=== PATIENT | female | born 1985 | race Caucasian/White ===

== ENCOUNTER → 2019-02-23 09:31 | Outpatient (CLI) | payer OTHER, SELFPAY ==
--- NOTE | 2019-02-23 09:33 | DI.US.S_ITS ---
PROCEDURE: US OB <= 14 WEEKS FETUS INDICATIONS: DATES OUTSIDE/PRIOR DATING DATA: Last menstrual period (LMP): 01/06/19. LMP-based estimated date of delivery (JEANMARIE): 10/13/19. First dating scan (date and location): 02/24/20. Estimated date of delivery (JEANMARIE) from first dating scan: 10/18/19. TECHNIQUE: Real-time scanning was performed of the fetus and maternal pelvic organs, with image documentation. Endovaginal scanning was also performed to better visualize the fetus and maternal ovaries. COMPARISON: None. FINDINGS: Embryo: Bicornuate uterus redemonstrated with the position within the right uterine horn. [place]-rump length measures 4 mm corresponding to 6 weeks 1 day. Heart rate measures 72 beats per minute. Measurement variability in dating: +/- 4 weeks by LMP, +/- 7 days by mean sac diameter (use before 6 weeks gestation if crown-rump length not able to be measured), +/- 5 days by crown-rump length (up to 8 weeks 6 days gestation), +/- 7 days by crown-rump length (up to 13 weeks 6 days gestation). Maternal organs: The right ovary is within normal limits. Left ovary is not visualized. Limited images through the kidneys demonstrate no hydronephrosis. IMPRESSION: 1. Bicornuate uterus redemonstrated with the and the right uterine horn with age estimated at 6 weeks 1 day. Bradycardia is noted with heart rate of 72 beats per minute. Followup ultrasound in one week is recommended to assess embryonic viability. Dictated by: Houston RODRIGUEZ Interpreted: Calvin Joyner MD on 02/23/2019 at 13:34 Approved by: Calvin Joyner M.D. on 02/23/2019 at 17:09
== END ==
PROVIDERS: PCP Family Medicine; Visit Provider Family Medicine
DX: O34.01 Maternal care for unspecified congenital malformation of uterus, first trimester (principal); O36.8310 Maternal care for abnormalities of the fetal heart rate or rhythm, first trimester, not applicable or unspecified; Q51.3 Bicornate uterus; Z3A.01 Less than 8 weeks gestation of pregnancy
CPT/HCPCS: 76801; 76817

== ENCOUNTER → 2019-03-02 07:36 | Outpatient (CLI) | payer OTHER, SELFPAY ==
--- NOTE | 2019-03-02 07:36 | DI.US.S_ITS ---
PROCEDURE: US OB <= 14 WEEKS FETUS INDICATIONS: FOLLOW-UP BRACYCARDIA OUTSIDE/PRIOR DATING DATA: Last menstrual period (LMP): 01/06/19. LMP-based estimated date of delivery (JEANMARIE): 10/13/19. First dating scan (date and location): 02/24/20. Estimated date of delivery (JEANMARIE) from first dating scan: 10/18/19. TECHNIQUE: Real-time scanning was performed of the fetus and maternal pelvic organs, with image documentation. Endovaginal scanning was also performed to better visualize the fetus and maternal ovaries. COMPARISON: [facility], , OB <= 14 WEEKS FETUS, 02/23/2019, 9:48. FINDINGS: Embryo: [place]-rump length 5 mm correlates with a gestational age of 6 weeks 2 days, but expected gestational age from initial ultrasound is 7 weeks 1 day and no cardiac activity was observed. Measurement variability in dating: +/- 4 weeks by LMP, +/- 7 days by mean sac diameter (use before 6 weeks gestation if crown-rump length not able to be measured), +/- 5 days by crown-rump length (up to 8 weeks 6 days gestation), +/- 7 days by crown-rump length (up to 13 weeks 6 days gestation). Maternal organs: Ovaries are normal considering gestational status. Limited images through the kidneys demonstrate no hydronephrosis. IMPRESSION: demise. Current estimated gestational age of the pole is 6 weeks 2 days, with no cardiac activity observed. Dictated by: Ned Altman M.D. on 03/02/2019 at 12:27 Approved by: Ned Altman M.D. on 03/02/2019 at 12:29
== END ==
PROVIDERS: PCP Family Medicine; Visit Provider Family Medicine
DX: O02.1 Missed abortion (principal)
CPT/HCPCS: 76801; 76817

== ENCOUNTER → 2019-03-08 16:34 | Outpatient (CLI) | payer OTHER, SELFPAY ==
[2019-03-08 19:02] LABS: HCG Quantitative /Beta subunit 27147 mIU/mL
== END ==
PROVIDERS: PCP Family Medicine; Visit Provider Family Medicine
DX: O02.1 Missed abortion (principal)
CPT/HCPCS: 36415; 84702

== ENCOUNTER → 2019-03-16 16:35 | Outpatient (CLI) | payer OTHER, SELFPAY ==
[2019-03-16 18:05] LABS: HCG Quantitative /Beta subunit 767.49 mIU/mL
== END ==
PROVIDERS: PCP Family Medicine; Visit Provider Family Medicine
DX: O03.9 Complete or unspecified spontaneous abortion without complication (principal)
CPT/HCPCS: 36415; 84702

== ENCOUNTER → 2019-03-21 14:26 | Outpatient (CLI) | payer OTHER, SELFPAY ==
[2019-03-21 16:40] LABS: HCG Quantitative /Beta subunit 209.13 mIU/mL
== END ==
PROVIDERS: PCP Family Medicine; Visit Provider Family Medicine
DX: O03.9 Complete or unspecified spontaneous abortion without complication (principal)
CPT/HCPCS: 36415; 84702

== ENCOUNTER → 2019-04-04 12:39 | Outpatient (CLI) | payer OTHER, SELFPAY ==
[2019-04-04 14:24] LABS: HCG Quantitative /Beta subunit 21.16 mIU/mL
== END ==
PROVIDERS: PCP Family Medicine; Visit Provider Family Medicine
DX: O03.9 Complete or unspecified spontaneous abortion without complication (principal)
CPT/HCPCS: 36415; 84702

== ENCOUNTER → 2019-04-18 10:39 | Outpatient (CLI) | payer OTHER, SELFPAY ==
[2019-04-18 12:11] LABS: HCG Quantitative /Beta subunit 5.68 mIU/mL
== END ==
PROVIDERS: PCP Family Medicine; Visit Provider Family Medicine
DX: O03.9 Complete or unspecified spontaneous abortion without complication (principal)
CPT/HCPCS: 36415; 84702

== ENCOUNTER → 2019-07-11 11:02 | Outpatient (CLI) | payer OTHER, SELFPAY | PROVIDERS: PCP Family Medicine; Visit Provider Registered Nurse | DX: R07.0 Pain in throat (principal) | CPT/HCPCS: 87070 ==

== ENCOUNTER → 2019-07-13 09:37 | Outpatient (CLI) | payer OTHER, SELFPAY ==
--- NOTE | 2019-07-13 09:38 | DI.US.S_ITS ---
PROCEDURE: US PELVIC COMPLETE INDICATIONS: DYSMENORRHEA TECHNIQUE: Real-time scanning was performed of the pelvic organs, with image documentation. Additional endovaginal scanning was necessary due to incomplete visualization of the adnexal and endometrial structures by transabdominal scanning. COMPARISON: None. FINDINGS: Transabdominal scanning: A mild amount of free pelvic fluid is seen, which is considered to be within physiologic limits. Limited scanning through the kidneys shows no hydronephrosis. Endovaginal scanning: Uterus: Uterus is normal in size at 5.9 x 4.2 x 7.7 cm. A history of a bicornuate uterus is given and the uterus again demonstrates a bicornuate appearance. The endometrial stripe on the right measures 6 mm and the endometrial stripe the left measures 10 mm. Ovaries: The right ovary measures 3.7 x 2 x 2.7 cm, and demonstrates a likely hemorrhagic cyst measuring 1.8 cm. The left ovary measures 3.2 x 1.2 x 2.8 cm. The ovaries otherwise have a normal sonographic appearance. No adnexal masses are seen. IMPRESSION: Likely 1.8 cm right ovarian hemorrhagic cyst. At clinical discretion, a followup pelvic ultrasound is suggested in 6 weeks to assure resolution/ improvement. Bicornuate uterus. Dictated by: Emmanuel Guy M.D. on 07/13/2019 at 10:07 Approved by: Emmanuel Guy M.D. on 07/13/2019 at 10:10
== END ==
PROVIDERS: PCP Family Medicine; Referring Provider Family Medicine; Visit Provider Family Medicine
DX: N94.6 Dysmenorrhea, unspecified (principal); Q51.3 Bicornate uterus; N83.201 Unspecified ovarian cyst, right side
CPT/HCPCS: 76830; 76856

== ENCOUNTER → 2019-11-21 15:01 | Outpatient (CLI) | payer OTHER, SELFPAY ==
[2019-11-21 16:11] LABS: Add Manual Diff / Slide Review NO; Basophils Absolute Auto 0 /uL (0-100); Basophils Percent Auto 0.3 % (0-2); Eosinophils Absolute Auto 100 /uL (0-450); Eosinophils Percent Auto 1.1 % (2-4); Hematocrit 32.4 % (36-46); Hemoglobin 11.5 g/dL (12.0-16.0); Lymphocytes Absolute Auto 2400 /uL (1100-4500); Lymphocytes Percent Auto 24.7 % (25-40); Mean Corpuscular HGB Conc 35.6 % (30-36); Mean Corpuscular Hemoglobin 30.5 PG (26-34); Mean Corpuscular Volume 85.7 fL (80-100); Monocytes Absolute Auto 500 /uL (0-900); Monocytes Percent Auto 4.9 % (3-14); Neutrophils Absolute Auto 6700 /uL (1500-7000); Platelet Count 173 X10^3/uL (150-400); Red Blood Cell Count 3.78 X10^6/uL (4.0-5.2); Red Cell Distribution Width 12.3 % (11.6-14.8); White Blood Cell Count 9.7 X10^3/uL (4.5-11.0)
[2019-11-21 17:23] LABS: Hepatitis B Surface Antigen NEGATIVE s/c (NEGATIVE)
[2019-11-21 17:39] LABS: HIV 1 & 2 Ab/Ag 4th Gen Combo NEGATIVE (NEGATIVE); Hep C Virus Ab w/Reflex Quant NEGATIVE s/c (NEGATIVE)
[2019-11-21 18:36] LABS: Appearance Urine UA CLEAR; Bilirubin Urine UA NEGATIVE (NEGATIVE); Color Urine UA YELLOW; Glucose Urine UA NEGATIVE (Negative); Ketones Urine UA NEGATIVE (NEGATIVE); Leukocyte Esterase Urine UA NEGATIVE (NEGATIVE); Nitrite Urine UA NEGATIVE (Negative); Occult Blood Urine UA NEGATIVE (Negative); Protein Urine UA NEGATIVE (Negative); Specific Gravity Urine UA 1.015 (1.000-1.035); Urobilinogen Urine UA 0.2 E.U./dL (0.2)
[2019-11-21 18:40] LABS: pH Urine UA 5.5 (4.5-8.0)
[2019-11-22 04:36] LABS: RPR Screen Non Reactive (Non Reactive)
[2019-11-22 08:41] LABS: Varicella IgG Antibody >4000 index (Immune >165)
== END ==
PROVIDERS: PCP Family Medicine; Referring Provider Obstetrics & Gynecology; Visit Provider Obstetrics & Gynecology
DX: Z34.90 Encounter for supervision of normal pregnancy, unspecified, unspecified trimester (principal)
CPT/HCPCS: 36415; 80055; 81003; 86787; 86803; 86850; 86900; 86901; 87086; 87389

== ENCOUNTER → 2020-01-09 16:26 | Outpatient (CLI) | payer OTHER, SELFPAY ==
[2020-01-18 16:12] LABS: AFP Value 163.7 ng/mL (.); Gest Age on Col Date 17.1 weeks (.); Gestational Age As provided (.); Insulin Dep Diabetes No (.); OSBR Risk 1IN 41 (.); Test Results *Screen Positive* (.)
[2020-01-27 10:17] LABS: Results Report (.)
== END ==
PROVIDERS: PCP Family Medicine; Referring Provider Obstetrics & Gynecology; Visit Provider Obstetrics & Gynecology
DX: Z34.92 Encounter for supervision of normal pregnancy, unspecified, second trimester (principal)
CPT/HCPCS: 36415; 82105

== ENCOUNTER 2020-02-23 09:09 | Observation (INO) | payer OTHER, SELFPAY ==
[2020-02-23 10:48] LABS: Appearance Urine UA CLEAR; Bilirubin Urine UA NEGATIVE (NEGATIVE); Color Urine UA YELLOW; Glucose Urine UA NEGATIVE (Negative); Ketones Urine UA NEGATIVE (NEGATIVE); Leukocyte Esterase Urine UA TRACE (NEGATIVE); Nitrite Urine UA NEGATIVE (Negative); Occult Blood Urine UA NEGATIVE (Negative); Protein Urine UA NEGATIVE (Negative); Urobilinogen Urine UA 0.2 E.U./dL (0.2)
[2020-02-23] MEDS: NIFEdipine 10 MG CAPSULE PO ×4 (10:49→11:58)
[2020-02-23 11:17] LABS: Bacteria Urine Few (2-10); Culture Indicated Urine Specimen Cultured; RBC Urine 0-1/HPF (0-5/HPF); Squamous Epithelial Cell Urine 1-5 /HPF (0-5/HPF); WBC Urine 0-1/HPF (0-5/HPF)
[2020-02-23 12:09] LABS: Fetal Fibronectin Negative
== END 2020-02-23 12:35 | disposition home or self-care (01) ==
PROVIDERS: Admitting Provider Obstetrics & Gynecology; PCP Family Medicine; Referring Provider Obstetrics & Gynecology; Visit Provider Obstetrics & Gynecology
DX: O47.02 False labor before 37 completed weeks of gestation, second trimester (principal); R10.2 Pelvic and perineal pain; Z3A.23 23 weeks gestation of pregnancy
CPT/HCPCS: 59025; 59050; 81001; 82731; 84112; 87086; G0378; G0379

== ENCOUNTER 2020-02-29 23:36 | Emergency (ER) | payer OTHER, SELFPAY ==
[2020-02-29 23:42] VITALS: BP 114/60; PULSE 92; RESP 22; TEMP 36.7; O2SAT 99
--- NOTE | 2020-02-29 23:51 | ED.ABDPAIN ---
HPI - Abdominal Pain General Chief Complaint: Abdominal Pain Stated Complaint: 24w preg with severe belly pain x12 hours Time Seen by Provider: 02/29/20 23:42 Source: patient Mode of arrival: Ambulatory History of Present Illness HPI narrative: 34-year-old presents at 24 weeks gestational age complaining of significant hemorrhoidal/perirectal pain. She was seen last week and started on nitrofurantoin for a urinary tract infection. Urine culture from February 22 shows mixed charlee. She had recurrent symptoms of urgency and frequency and was seen in clinic today and switched to Keflex. She notes moderate constipation that seems to be better controlled with Colace b.i.d. she does note some mild perianal seat being secondary to presumed internal hemorrhoids. She has been using [id number] preparation H but does not feel that this is influencing her internal hemorrhoids. This evening the hemorrhoidal pain was significant enough that she was unable to sleep and she presents for further evaluation Baby is moving and active. She describes no fevers, no cough, no shortness of breath no palpitations Related Data Home Medications Medication Instructions Recorded Confirmed cholecalciferol (vitamin D3) 25 1,000 unit PO DAILY 04/01/18 02/06/20 mcg (1,000 unit) capsule omega-3 fatty acids 1,000 mg 1,000 mg PO DAILY 04/01/18 02/06/20 capsule prenat.vits,valeria,gvf-umao-ppbhg 1 tab PO DAILY 10/25/19 02/06/20 ferrous sulfate 325 mg (65 mg 325 mg PO DAILY 11/22/19 02/06/20 iron) tablet Previous Rx's Medication Instructions Recorded Message THerapy #1 ea 03/01/19 hydroxyprogest(PF)(preg presv) 275 275 mg SUBCUT QWEEK #4.4 ml MDD 10/25/19 mg/1.1 mL subcut auto-inject JEANMARIE 06/17/20 nifedipine 30 mg tablet,extended 30 mg PO BID #60 tab 02/23/20 release cephalexin 250 mg capsule 250 mg PO QID #20 cap 02/29/20 hydrocortisone acetate [Anusol-HC] 25 mg [place] BID #24 ea 03/01/20 Allergies Allergy/AdvReac Type Severity Reaction Status Date / Time erythromycin base Allergy Intermediate Rash Verified 02/06/20 13:47 [ERYTHROMYCIN BASE] Sulfa (Sulfonamide Allergy Intermediate Rash Verified 02/06/20 13:47 Antibiotics) [SULFA (SULFONAMIDE ANTIBIOTICS)] Review of Systems Review of Systems Narrative: Remainder of review of systems including constitutional, ENT, cardiovascular, respiratory, GI, , musculoskeletal, skin, neurologic and psychiatric systems reviewed and are unremarkable except as noted in HPI. Patient History Medical History (Updated 03/01/20 @ 01:11 by Jada Augustin MD) Anemia Anxiety Bicornuate uterus delivery delivered Chronic UTI Headache Hemorrhoids Hypoglycemia Lump or mass in breast Migraines Ruptured cyst of left ovary (~2019) Syncope Varicose veins of both legs with edema Yeast infection Surgical History Anesthesia H/O emergency section (~03/12/17) History of surgery (~05/2012) History of surgery (~05/2013) History of third molar tooth extraction History of third molar tooth extraction (~2011) Family History Father Age: 60 Diabetes mellitus Varicose veins of both lower extremities Mother Rheumatoid arthritis Grandfather MVA (motor vehicle accident) Altered cardiac tissue perfusion Abdominal obesity Grandmother Osteoarthritis (arthritis due to wear and tear of joints) Grandfather Diabetes mellitus Abdominal obesity Grandmother Irregular heart rate Family/Other Alzheimers disease Family/Other Cancer Social History marital status: pets and animals: Yes (X 1 Dog) education level: college (some College) occupational status: unemployed current occupational exposures/hazards: No 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: [employer] special cassandra needs: No Smoking Status: Never smoker second hand exposure: No alcohol intake: former (pre- : social 1-2/week) substance use type: does not use Smoking Status: Never smoker Exam Narrative Exam Narrative: General: Alert appropriate in no acute distress Respiratory: Able to speak in full sentences, no obvious respiratory distress Skin: No obvious rashes, warm and dry Neurologic: Grossly intact no obvious asymmetries or abnormalities Abdomen: Gravid soft, nontender Pelvic: Cervix is long and closed no vaginal discharge Perineum: There is a 1.5 cm thrombosed hemorrhoid at the 6 o'clock position. Full internal hemorrhoids without thrombosis at this time Psych, appropriate insight and affect, cooperative Bedside ultrasound shows active fetus with heart rate at 140 Initial Vital Signs Initial Vital Signs: Vital Signs Temperature 98.1 F 02/29/20 23:42 Pulse Rate 92 H 02/29/20 23:42 Respiratory Rate 22 02/29/20 23:42 Blood Pressure 114/60 02/29/20 23:42 Pulse Oximetry 99 02/29/20 23:42 Procedures [facility] Procedure Name of Procedure: Thrombosed hemorrhoid evacuation Location: 6:00 a.m. site of the anus Technique/Description of procedure performed: 4 cc of of heard 1% lidocaine is injected at the base of the external hemorrhoid. Using a 15 blade scalpel incision was made and blood clot was removed from the center of the hemorrhoid. Patient tolerated the procedure well. Total of 3 cc blood loss Patient tolerated procedure: Well Complications: none Course Orders Ordered: ED Orders 03/01/20 01:00 Urinalysis and Microscopic Stat Lidocaine HCl (Lidocaine Jelly 2% 5 Ml) 1 applic TOP NOW ONE Stop: 03/01/20 01:19 Discontinued Medications Lidocaine HCl (Lidocaine Jelly 2% 5 Ml) 1 applic TOP NOW ONE Stop: 03/01/20 01:10 Last Admin: 03/01/20 01:13 Dose: 1 applic Documented by: Lidocaine/Sodium Bicarbonate (Lido 1%/Sod Bicarb 8.4% (10ml) 10 Ml Syringe) 10 ml INJ NOW ONE Stop: 03/01/20 00:04 Last Admin: 03/01/20 00:25 Dose: 10 ml Documented by: Vital Signs Vital signs: Vital Signs - 8 hr 02/29/20 23:42 Temperature 98.1 F Pulse Rate 92 H Respiratory Rate 22 Blood Pressure 114/60 Pulse Oximetry 99 MDM - Abdominal Pain Lab Data Attestation: I reviewed the patient's lab results. Labs: Lab Results 03/01/20 Range/Units 01:00 Urine Color Yellow Urine Appearance Clear Urine pH 6.0 (4.5-8.0) Ur Specific [place] <=1.005 (1.000-1.035) Urine Protein Negative (Negative) Urine Glucose (UA) Negative (Negative) g/dL Urine Ketones 2+ H (NEGATIVE) Urine Occult Blood Trace-intact (Negative) Urine Nitrate Negative (Negative) Urine Bilirubin Negative (NEGATIVE) Urine Urobilinogen 0.2 (0.2) E.U./dL Ur Leukocyte Esterase Negative (NEGATIVE) Point of care testing: Urine Dip Bedside Urine Glucose Negative Bedside Urine Bilirubin - Negative Bedside Urine Ketone +++ 80 Urine Specific [place] 1.010 Bedside Urine Occult Blood - Negative Bedside Urine pH 6.0 Bedside Urine Protein - Negative Bedside Urine Urobilinogen - Negative Bedside Urine Nitrite - Negative Bedside Urine Leukocytes - Negative Esterase MDM Narrative Medical decision making narrative: 34-year-old woman presents with hemorrhoidal pain and discomfort. She was seen on the with increasing contractions in the setting with 23 week in bicornuate uterus. She was treated for urinary tract infection with 5 days of nitrofurantoin however the culture eventually returned with mixed charlee. She was having recurrent symptoms of frequency yesterday so antibiotics were changed to Keflex. Today urine dip does not suggest infection and I have recommended she stop the Keflex for now. She had a small thrombosed hemorrhoid that was removed without difficulty. She is given a prescription for Anusol HC to help with the internal hemorrhoids and leaking that she is experiencing. Have asked her follow-up with her OBGYN if she has increasing contractions or continued urinary symptoms. Discharge Plan Departure Patient Disposition: Home Clinical Impression: Hemorrhoids Qualifiers: Hemorrhoid type: perianal venous thrombosis Qualified Code(s): K64.5 - Perianal venous thrombosis Qualifiers: Weeks of gestation: 24 weeks Qualified Code(s): Z3A.24 - 24 weeks gestation of Instructions: DI for Hemorrhoids Activity Restrictions/Additional Instructions: Thank you for coming in today Your baby looks like he is doing well and his heartbeat is reassuring tonight You do have both internal and external hemorrhoids. One of the external ones did have a thrombosed clot. I was able to remove a small clot. You also have internal hemorrhoids that are quite full but not thrombosed. That is part of the reason that your having a bit of drainage from your rectum. I have given you a prescription for Anusol HC, steroid suppository to help reduce inflammation. These are inserted into your rectum morning and night for 3 days initially and then as needed to help control pain and swelling. [facility] [place] Continuing to use Sitz baths will be helpful as the area where the hemorrhoid clot was removed will still be tender for a day or two. Do continue to use stool softeners and avoid constipation as much as possible. Your urine culture from February 22 showed mixed charlee and no evidence of a bladder infection. Your urinalysis from today did not show any evidence of a bladder infection and has been sent to the lab. If the 2nd microbiology test shows abnormalities it will be cultured. Please follow-up with Dr. Castillo. At this time I would not recommend that you continue the Keflex I wish you the best Prescriptions: New hydrocortisone acetate [Anusol-HC] 25 mg suppository 25 mg [place] BID Qty: 24 RF: 0 No Action cholecalciferol (vitamin D3) 1,000 unit capsule 1,000 unit PO DAILY RF: 0 omega-3 fatty acids [Fish Oil Concentrate] 1,000 mg capsule 1,000 mg PO DAILY RF: 0 (DME) Message THerapy Qty: 1 RF: 0 ferrous sulfate 325 mg (65 mg iron) tablet 325 mg PO DAILY RF: 0 nifedipine 30 mg tablet extended release 30 mg PO BID Qty: 60 RF: 3 cephalexin [Keflex] 250 mg capsule 250 mg PO QID Qty: 20 RF: 0 prenat.vits,valeria,bpu-dugs-fxiql Tablet 1 tab PO DAILY RF: 0 [place] (PF) 275 mg/1.1 mL auto-injector 275 mg SUBCUT QWEEK MDD JEANMARIE 06/17/20 Qty: 4.4 RF: 4 Referrals: Candace Rodriguez DO [Primary Care Provider] -
[2020-03-01] MEDS: LIDO 1%/SOD BICARB 8.4% (10ML) 10 ML SYRINGE INJ (00:25)
[2020-03-01 01:06] LABS: Appearance Urine UA CLEAR; Bacteria Urine None Seen; Bilirubin Urine UA NEGATIVE (NEGATIVE); Color Urine UA YELLOW; Glucose Urine UA NEGATIVE (Negative); Ketones Urine UA 2+ (NEGATIVE); Leukocyte Esterase Urine UA NEGATIVE (NEGATIVE); Nitrite Urine UA NEGATIVE (Negative); Occult Blood Urine UA TRACE-INTACT (Negative); Protein Urine UA NEGATIVE (Negative); RBC Urine None Seen (0-5/HPF); Specific Gravity Urine UA <=1.005 (1.000-1.035); Urobilinogen Urine UA 0.2 E.U./dL (0.2); WBC Urine None Seen (0-5/HPF)
[2020-03-01] MEDS: LIDOCAINE JELLY 2% 5 ML 1 APPLIC TOP ×2 (01:13→01:23)
[2020-03-01 01:24] VITALS: BP 99/55; PULSE 81; RESP 18; O2SAT 100
[2020-03-01 01:26] LABS: Culture Indicated Urine Cult Not Indicated; Squamous Epithelial Cell Urine 1-5 /HPF (0-5/HPF)
== END 2020-03-01 01:25 | disposition home or self-care (01) ==
PROVIDERS: Emergency Provider Emergency Medicine; PCP Family Medicine
DX: O26.892 Other specified pregnancy related conditions, second trimester (principal); K64.5 Perianal venous thrombosis; Z3A.24 24 weeks gestation of pregnancy
CPT/HCPCS: 46320; 81001; 81003; 99281; 99283

== ENCOUNTER → 2020-03-05 14:27 | Outpatient (CLI) | payer OTHER, SELFPAY ==
[2020-03-05 15:22] LABS: Fetal Fibronectin Negative
== END ==
PROVIDERS: PCP Family Medicine; Visit Provider Obstetrics & Gynecology
DX: Z34.82 Encounter for supervision of other normal pregnancy, second trimester (principal); Z3A.25 25 weeks gestation of pregnancy
CPT/HCPCS: 82731

== ENCOUNTER → 2020-03-06 14:14 | Outpatient (CLI) | payer OTHER, SELFPAY ==
[2020-03-06 16:17] LABS: Hemoglobin 10.8 g/dL (12.0-16.0)
[2020-03-06 17:06] LABS: GTT (PREG) 1 Hour PP 50gm Dose 164 mg/dL (76-139)
== END ==
PROVIDERS: PCP Family Medicine; Referring Provider Obstetrics & Gynecology; Visit Provider Obstetrics & Gynecology
DX: Z34.82 Encounter for supervision of other normal pregnancy, second trimester (principal); Z3A.26 26 weeks gestation of pregnancy
CPT/HCPCS: 36415; 82950; 85014; 85018

== ENCOUNTER → 2020-03-19 07:46 | Outpatient (CLI) | payer OTHER, SELFPAY ==
[2020-03-19 08:55] LABS: Glucose Fasting Gestational 82 mg/dL (76-95)
[2020-03-19 09:55] LABS: Glucose 1 Hour Gest 162 mg/dL (76-180)
[2020-03-19 11:38] LABS: Glucose Tol Interp,Gestational INTERPRETATION
[2020-03-19 12:05] LABS: Glucose 3 Hour Gest 98 mg/dL (76-140)
[2020-03-19 12:19] LABS: Glucose 2 Hour Gest 161 mg/dL (76-155)
[2020-03-19 15:23] LABS: Fetal Fibronectin Negative
== END ==
PROVIDERS: Obstetrics & Gynecology; PCP Family Medicine; Referring Provider Family Medicine; Visit Provider Family Medicine
DX: O99.810 Abnormal glucose complicating pregnancy (principal); O09.899 Supervision of other high risk pregnancies, unspecified trimester; Z3A.27 27 weeks gestation of pregnancy
CPT/HCPCS: 36415; 82731; 82951; 82952

== ENCOUNTER → 2020-04-02 13:24 | Outpatient (CLI) | payer OTHER, SELFPAY ==
[2020-04-02 14:47] LABS: Fetal Fibronectin Negative
== END ==
PROVIDERS: PCP Family Medicine; Visit Provider Obstetrics & Gynecology
DX: Z34.83 Encounter for supervision of other normal pregnancy, third trimester (principal); Z3A.29 29 weeks gestation of pregnancy
CPT/HCPCS: 82731

== ENCOUNTER 2020-04-12 12:51 | Observation (INO) | payer OTHER, SELFPAY ==
[2020-04-12 13:54] LABS: Fetal Fibronectin Negative
[2020-04-12] MEDS: TERBUTALINE 1 MG/ML VIAL 0.25 MG SUBCUT (14:00)
== END 2020-04-12 15:26 | disposition home or self-care (01) ==
PROVIDERS: Admitting Provider Obstetrics & Gynecology; PCP Family Medicine; Referring Provider Obstetrics & Gynecology; Visit Provider Obstetrics & Gynecology
DX: O47.03 False labor before 37 completed weeks of gestation, third trimester (principal); Z3A.30 30 weeks gestation of pregnancy
CPT/HCPCS: 59025; 59050; 82731; 96372; G0378; G0379

== ENCOUNTER → 2020-04-23 13:43 | Outpatient (CLI) | payer OTHER, SELFPAY ==
[2020-04-23 15:27] LABS: Fetal Fibronectin Negative
== END ==
PROVIDERS: PCP Family Medicine; Visit Provider Obstetrics & Gynecology
DX: O09.899 Supervision of other high risk pregnancies, unspecified trimester (principal); Z3A.33 33 weeks gestation of pregnancy
CPT/HCPCS: 82731

== ENCOUNTER 2020-04-26 21:57 | Emergency (ER) | payer OTHER, SELFPAY ==
[2020-04-26 22:13] VITALS: BP 120/70; PULSE 87; RESP 18; TEMP 36.6; O2SAT 99
== END 2020-04-27 00:55 | disposition left against medical advice (07) ==
PROVIDERS: Emergency Provider Emergency Medicine; PCP Family Medicine
CPT/HCPCS: 99281

== ENCOUNTER → 2020-04-30 14:50 | Outpatient (CLI) | payer OTHER, SELFPAY ==
[2020-04-30 15:37] LABS: Fetal Fibronectin Negative
== END ==
PROVIDERS: PCP Family Medicine; Visit Provider Obstetrics & Gynecology
DX: O09.899 Supervision of other high risk pregnancies, unspecified trimester (principal); O47.9 False labor, unspecified
CPT/HCPCS: 82731

== ENCOUNTER 2020-05-10 16:17 | Observation (INO) | payer OTHER, SELFPAY ==
[2020-05-10 16:51] LABS: Bacteria Urine None Seen; RBC Urine None Seen (0-5/HPF)
[2020-05-10 17:01] LABS: Appearance Urine UA CLEAR; Bilirubin Urine UA NEGATIVE (NEGATIVE); Color Urine UA YELLOW; Glucose Urine UA NEGATIVE (Negative); Ketones Urine UA NEGATIVE (NEGATIVE); Leukocyte Esterase Urine UA NEGATIVE (NEGATIVE); Nitrite Urine UA NEGATIVE (Negative); Occult Blood Urine UA NEGATIVE (Negative); Protein Urine UA NEGATIVE (Negative); Specific Gravity Urine UA 1.015 (1.000-1.035); Urobilinogen Urine UA 0.2 E.U./dL (0.2)
[2020-05-10 17:08] LABS: WBC Urine 0-1/HPF (0-5/HPF)
[2020-05-10 17:09] LABS: Culture Indicated Urine Cult Not Indicated; Squamous Epithelial Cell Urine 1-5 /HPF (0-5/HPF)
--- NOTE | 2020-05-10 18:07 | DI.US.S_ITS ---
PROCEDURE: US OB TRANSVAGINAL INDICATIONS: LABOR OUTSIDE/PRIOR DATING DATA: Last menstrual period (LMP): September 11, 2019. LMP-based estimated date of delivery (JEANMARIE): June 17, 2020. First dating scan (date and location): October 25, 2019. Estimated date of delivery (JEANMARIE) from first dating scan: June 10, 2020. TECHNIQUE: Real-time scanning was performed of the fetus, with image documentation. Endovaginal scanning: Performed COMPARISON: [facility], , US OB >= 14 WEEKS FETUS, 05/07/2020, 15:56. [facility], [place], US OB >= 14 WEEKS FETUS, 04/30/2020, 14:42. [facility], [place], US OB >= 14 WEEKS FETUS, 04/23/2020, 13:48. [facility], , US OB >= 14 WEEKS FETUS, 04/16/2020, 16:17. [facility], , US OB >= 14 WEEKS FETUS, 04/09/2020, 9:34. [facility], , US OB >= 14 WEEKS FETUS, 04/02/2020, 13:43. [facility], [place], US OB >= 14 WEEKS FETUS, 03/19/2020, 14:22. [facility], , US OB >= 14 WEEKS FETUS, 03/05/2020, 10:46. [facility], , US OB <= 14 WEEKS FETUS, 12/06/2019, 17:07. [facility], , US OB <= 14 WEEKS FETUS, 10/25/2019, 10:56. FINDINGS: A single living intrauterine gestation is present. Presentation: Vertex Placenta: Placental position is left fundal, without previa. Amniotic fluid index: 18.4 cm, normal range is 5-24 cm. heart rate: 150 beats per minute. Maternal cervical canal: Closed and 3 point cm long. Normal lower limit is 2.5 cm. Estimated gestational age from initial scan or LMP: 34 weeks 4 days. IMPRESSION: 1. Single living intrauterine . 2. Normal amniotic fluid index. 3. Closed cervix measuring 3.9 centimeters. Dictated by: Noelle Glover MD, PhD on 05/10/2020 at 19:23 Approved by: Noelle Glover MD, PhD on 05/10/2020 at 19:25
== END 2020-05-10 19:00 | disposition home or self-care (01) ==
LOC: LABOR 16:18
PROVIDERS: Admitting Provider Obstetrics & Gynecology; PCP Family Medicine; Referring Provider Obstetrics & Gynecology; Visit Provider Obstetrics & Gynecology
DX: O26.893 Other specified pregnancy related conditions, third trimester (principal); R10.30 Lower abdominal pain, unspecified; Z3A.34 34 weeks gestation of pregnancy
CPT/HCPCS: 59025; 59050; 76817; 81001; G0378; G0379

== ENCOUNTER 2020-05-14 13:51 | Outpatient (CLI) | payer OTHER, SELFPAY | END 2020-05-14 14:55 | disposition home or self-care (01) | LOC: LABOR 13:59 → OB 05-15 08:58 | PROVIDERS: PCP Family Medicine; Referring Provider Obstetrics & Gynecology; Visit Provider Obstetrics & Gynecology | DX: O47.03 False labor before 37 completed weeks of gestation, third trimester (principal); O34.03 Maternal care for unspecified congenital malformation of uterus, third trimester; Q51.3 Bicornate uterus; Z3A.35 35 weeks gestation of pregnancy | CPT/HCPCS: 59025; G0378; G0379 ==

== ENCOUNTER 2020-05-18 13:14 | Outpatient (CLI) | payer OTHER, SELFPAY | END 2020-05-18 14:10 | disposition home or self-care (01) | LOC: LABOR 13:39 → OB 05-21 09:13 | PROVIDERS: PCP Family Medicine; Referring Provider Obstetrics & Gynecology; Visit Provider Obstetrics & Gynecology | DX: O47.03 False labor before 37 completed weeks of gestation, third trimester (principal); O34.03 Maternal care for unspecified congenital malformation of uterus, third trimester; Q51.3 Bicornate uterus; Z3A.35 35 weeks gestation of pregnancy | CPT/HCPCS: 59025; G0378; G0379 ==

== ENCOUNTER 2020-05-19 17:57 | Outpatient (CLI) | payer OTHER, SELFPAY | END 2020-05-19 18:30 | disposition home or self-care (01) | LOC: OB 05-21 09:13 | PROVIDERS: PCP Family Medicine; Referring Provider Family Medicine; Visit Provider Family Medicine | CPT/HCPCS: 59025; 84112; G0378; G0379 ==

== ENCOUNTER 2020-05-21 00:12 | Inpatient (IN) | payer OTHER, SELFPAY ==
[2020-05-21] VITALS (7 sets, daily range): BP systolic 99–120; BP diastolic 60–87; PULSE 89–100; RESP 8–20; TEMP 36.3; O2SAT 94–978
--- NOTE | 2020-05-21 | PATH_ITS ---
[facility] Accession Number: [id number] . 01 Material submitted: . fallopian tube - BILATERAL FALLOPIAN TUBES . 01 Clinical history: . EVALUATION OF LABOR CRAMPING/CONTRACTIONS . 02 Diagnosis: Bilateral Fallopian Tubes: Complete cross-sections of segments of fallopian tube x2. Negative for atypia or malignancy. [facility] 05/24/2020 1155 Local . 02 Electronically signed: . Carmella Rodgers MD, Pathologist NPI- [id number] . 01 Gross description: . The specimen is received in formalin, labeled bilateral fallopian tubes and consists of two fallopian tubes averaging 9.5 cm in length and 0.9 cm in diameter. The serosa is pink-purple and smooth. Sectioning reveals a beard mucosa and a stellate lumen measuring 0.3 cm in diameter. Hospice Administrator sections of each fallopian tube, to include the margin (blue) and bisected fimbria in cassettes A1-A4. ([id number]) /[facility] 05/22/2020 1609 Local . 02 Pathologist provided ICD-10: Z30.2 . 02 CPT . 694161 Performed at: 01 [facility] [address] [facility], [place], [place] [id number] MD Pieter Suh MD Phone: [phone] Performed at: 02 [facility] [address] [place], [place] [id number] MD Celena Contreras MD Phone: [phone]
--- NOTE | 2020-05-21 00:44 | P.HPOB_ITS ---
OB HPI Date/Time Date of admission: 05/21/20 Date Patient Seen: 05/21/20 Time Patient Seen: 00:44 History of Present Condition Chief complaint: EVALUATION OF LABOR CRAMPING/CONTRATIONS : 3 Para: 1 Estimated Date of Delivery: 06/17/20 Estimated Gestational Age (weeks): 36+1 Narrative: Ana Bryant is a 35 year old female 3 para 0111 at 36- ,1/7 weeks gestation with a previous section who presented with spontaneous rupture of membranes. Patient is hany. Indications Operative indications ( section): previous uterine surgery History of Present care: good care, initiated at week # (8), number of visits (14) and pounds weight gain (9) Dating criteria: LMP confirmed by 1st trimester US Ultrasounds: normal 1st trimester US and normal mid trimester US Obstetrical complications: labor Medical complications: none Preadmission Labs Blood type: O (+) positive -: Antibody screen: negative, GBS status: unknown, HBsAG: negative, HIV: negative and RPR/VDLR: negative -: Chlamydia screen: not detected and Gonorrhea screen: not detected -: Rubella: immune and Varicella: immune HCT: 31 HCAB: negative PAP: Normal Cell-free DNA: Normal male, AFP positive Urine: neg 1 hr GTT: 164 3 hr GTT: 1 hr (162), 2 hr (161) and 3 hr (98) Fasting blood glucose: 82 Prior (ies) History: C/S 2017 Bicornuate uterus 2019 SAB at 6 weeks Evaluation Evaluation Baseline heart rate: 110 Variability: Moderate (11-25) monitor accelerations: Present monitor decelerations: Absent Contraction Frequency (minutes): 4 Uterine Contraction Intensity: Moderate Status: Category l PFSH Medical History (Updated 05/12/20 @ 00:00 by ) Anemia Anxiety Bicornuate uterus delivery delivered Chronic UTI Headache Hemorrhoids Hypoglycemia Lump or mass in breast Migraines Ruptured cyst of left ovary (~2019) Syncope Varicose veins of both legs with edema Yeast infection Surgical History (Updated 04/29/20 @ 13:55 by Neda Castillo MD) Anesthesia H/O emergency section (~03/12/17) History of surgery (~05/2012) History of surgery (~05/2013) History of third molar tooth extraction History of third molar tooth extraction (~2011) Family History Father Age: 60 Diabetes mellitus Varicose veins of both lower extremities Mother Rheumatoid arthritis Grandfather MVA (motor vehicle accident) Altered cardiac tissue perfusion Abdominal obesity Grandmother Osteoarthritis (arthritis due to wear and tear of joints) Grandfather Diabetes mellitus Abdominal obesity Grandmother Irregular heart rate Family/Other Alzheimers disease Family/Other Cancer Social History marital status: pets and animals: Yes (X 1 Dog) education level: college (some College) occupational status: unemployed current occupational exposures/hazards: No 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 cassandra/religious: Gnosticism special cassandra needs: No Smoking Status: Never smoker second hand exposure: No alcohol intake: former (pre- : social 1-2/week) substance use type: does not use Meds Home Medications and Allergies Home Medications Medication Instructions Recorded Confirmed Type cholecalciferol (vitamin D3) 25 1,000 unit PO DAILY 04/01/18 05/14/20 History mcg (1,000 unit) capsule omega-3 fatty acids 1,000 mg 1,000 mg PO DAILY 04/01/18 05/14/20 History capsule Message THerapy #1 ea 03/01/19 05/14/20 Rx hydroxyprogest(PF)(preg presv) 275 275 mg SUBCUT QWEEK #4.4 ml MDD 10/25/19 05/14/20 Rx mg/1.1 mL subcut auto-inject JEANMARIE 06/17/20 prenat.vits,valeria,[id number] 1 tab PO DAILY 10/25/19 05/14/20 History ferrous sulfate 325 mg (65 mg 325 mg PO DAILY 11/22/19 05/14/20 History iron) tablet nifedipine 30 mg tablet,extended 30 mg PO BID #60 tab 02/23/20 05/14/20 Rx release cephalexin 250 mg capsule 250 mg PO QID #20 cap 02/29/20 05/14/20 Rx hydrocortisone acetate 25 mg 25 mg [place] BID #24 ea 04/19/20 05/14/20 Rx rectal suppository pantoprazole 20 mg tablet,delayed 20 mg PO DAILY #30 tab 05/10/20 05/14/20 Rx release zolpidem 5 mg tablet 5 mg PO BEDTIME PRN #20 tab 05/10/20 05/14/20 Rx nifedipine 10 mg capsule 10 mg PO BID #20 cap 05/15/20 Rx Allergies Allergy/AdvReac Type Severity Reaction Status Date / Time erythromycin base Allergy Intermediate Rash Verified 05/14/20 13:23 [ERYTHROMYCIN BASE] Sulfa (Sulfonamide Allergy Intermediate Rash Verified 05/14/20 13:23 Antibiotics) [SULFA (SULFONAMIDE ANTIBIOTICS)] Exam Vital Signs (past 8 hours): Generally: Patient is sitting up in bed, having IV placed, no acute distress Lungs: Clear to auscultation bilaterally Cardiovascular: Regular rate and rhythm Fundal height: 35 cm Estimated weight: 5 lb Extremities: No edema Perineum: Gross rupture of membranes Assessment and Plan Assessment and Plan Assessment and Plan narrative: Assessment: 35-year-old 2 para 0111 at 36-,1/7 weeks gestation with spontaneous rupture of membranes Previous section Contractions every 4 minutes Plan: Repeat low-transverse section The risks, benefits, and alternatives to the procedure were explained to the patient. The risks including bleeding, infection, injury to the bowel, bladder, or ureters. She understands these risks and agrees to proceed. A full par Q was held and consent form was signed. Time Spent with Patient Total time spent with greater than 50% in coordination of care (as documented) at patient's floor/unit and/or counseling patient:: less than 15 minutes
[2020-05-21 01:03] LABS: Hematocrit 29.9 % (36-46); Hemoglobin 10.7 g/dL (12.0-16.0); Mean Corpuscular HGB Conc 35.6 % (30-36); Mean Corpuscular Hemoglobin 31.3 PG (26-34); Mean Corpuscular Volume 87.8 fL (80-100); Platelet Count 161 X10^3/uL (150-400); Red Blood Cell Count 3.41 X10^6/uL (4.0-5.2); Red Cell Distribution Width 13.5 % (11.6-14.8); White Blood Cell Count 11.8 X10^3/uL (4.5-11.0)
[2020-05-21 01:05] LABS: Add Manual Diff / Slide Review YES
--- NOTE | 2020-05-21 01:09 | P.OP_ITS ---
Operative Date/Time/Diagnoses Date of procedure: 05/21/20 Time of procedure: 02:42 Pre-op diagnosis: 36+1 weeks gestation Previous C section Bicornuate uterus Desires permanent sterilization Spontaneous rupture of membranes Post-op diagnosis: same Procedure & Clinicians Procedure: Procedures Operation Date: 05/21/20 01:00 <No data on this case meets the specified criteria> Repeat low-transverse section, bilateral salpingectomy Indications: 36+1 weeks gestation SROM Bicornuate uterus Desires permanent sterilization Previous C section Surgeon: Neda Castillo Video Production Specialist: Candace Rodriguez Anesthesia Type: Spinal Operative Notes Findings: Live male infant in the vertex presentation Bicornuate uterus with baby in the left side Normal tubes and ovaries The patient was taken to the operating room where she was placed in the seated position. Spinal anesthesia with Duramorph was administered. The patient was then placed in the dorsal supine position with a leftward tilt. She was prepped and draped in the usual sterile fashion. A timeout was performed. After spinal analgesia was found to be adequate, a Pfannenstiel skin incision was made through the previous incision and carried through to the underlying layer fascia. The fascia was nicked in the midline, and the incision extended bilaterally with the Shine scissors. The superior aspect of the fascial incision was grasped with a [place] clamps, elevated, and the underlying rectus muscles dissected off sharply and bluntly. Attention was then turned to the inferior aspect of this incision which in a similar fashion was grasped with a [place] clamps, elevated, and the underlying rectus muscles dissected off sharply and bluntly. The rectus muscles were in the midline. The peritoneum was identified, grasped between 2 hemostats, and entered sharply with the Metzenbaum scissors. This incision was extended superiorly and inferiorly with good visualization of the bladder. The bladder blade was inserted. The vesicouterine peritoneum was identified, grasped with the pickup, and entered sharply with the Metzenbaum scissors. This incision was extended bilaterally, and the bladder flap was created digitally. The bladder blade was reinserted. The lower uterine segment was incised in a transverse fashion with the scalpel. The 's head was delivered without difficulty. A nuchal cord x2 was redu tavon. The nose and mouth were suctioned with bulb suction. The remainder of the body delivered without difficulty. The cord was double clamped and cut. The infant was handed off to waiting Peds. The placenta was delivered manually. The uterus was cleared of all clots and debris. The had been in the left horn of the uterus. The uterine incision was repaired with #1 chromic in a running interlocking fashion, and a second layer the same suture was used for an imbricating layer. Hemostasis was achieved. The tubes and ovaries were examined and were found to be normal. The gutters were cleared of all clots and debris. The left tube was identified and carried out to the fimbriated end. Using the gyrus the mesosalpinx was cauterized and then cut with the Metzenbaum scissors. This was carried down to the cornu of the uterus. The tube was amputated at the cornua. This was repeated on the patient's right side. Hemostasis was achieved The bladder flap was reapproximated using 2-0 Vicryl in a running fashion. The parietal peritoneum was closed using 2-0 Vicryl in a running fashion. The fascia was reapproximated using 0 Vicryl in a running fashion. The subcutaneous layer was copiously irrigated with warm normal saline. 5 simple interrupted sutures of 3-0 Vicryl were placed to reapproximate the subcutaneous layer. The skin was closed with 4-0 Biosyn in a subcuticular fashion. Steri-Strips were placed. An Aquacell dressing was placed. The uterus was expressed of a small amount of old blood. Sponge, lap, and instrument counts were correct x-2. The patient tolerated the procedure well, and was taken to PACU in stable condition. Urine output 500 cc clear Closure Type: primary Specimen(s): left tube, right tube and other (Cord bloods, placenta) Applied: catheter Estimated blood loss (mL): 500 Blood products transfused: none Procedure in detail: See above Complications: none Post-operative Condition: stable Disposition: PACU Plan for aftercare: To the Center after Recovery
[2020-05-21] MEDS: CEFAZOLIN 2 GM/100 ML FROZ.PIGGY IV (01:13)
[2020-05-21 01:15] LABS: COVID19 -Nasal RAPID Negative (Negative)
--- NOTE | 2020-05-21 01:36 | SUR.OPER ---
Supine on Padded OR bed, head on pillow, safety belt at thigh, arms secured on padded arm boards at <90 degrees abduction. Bump under right buttock. Legs uncrossed with pillow under knees, gel pad to heels, tape over blanket to lower legs. Supine on Padded OR bed, head on pillow, safety belt at thigh, arms secured on padded arm boards at <90 degrees abduction. Bump under right buttock. Legs uncrossed with pillow under knees, gel pad to heels, tape over blanket to lower legs.
[2020-05-21] MEDS: LACTATED RINGERS 1,000 ML 100 ML IV ×2 (01:47→04:20)
--- NOTE | 2020-05-21 01:52 | SUR.OPER ---
live male at 0151
--- NOTE | 2020-05-21 02:05 | SUR.OPER ---
APGARS 7/9
[2020-05-21 02:21] LABS: Strep Grp B PCR NEG for Grp B Strep
[2020-05-21 02:54] LABS: Neutrophils Absolute Manual 8142 /uL (3000-5900); Total Cells Counted 100
[2020-05-21 02:55] LABS: RBC Morphology Normal Morphology
[2020-05-21] MEDS: OXYCODONE/ACETAMINOPHEN 5/325 TABLET 1 TAB PO (02:58)
--- NOTE | 2020-05-21 03:28 | SUR.PHASEI ---
0242 Arrived to PACU awake, oriented. Fundus firm upon arrival as marked, no massage needed. Denies nausea. Reported that pt had + sensation at incisional site during suturing. Discusses med options with her. She opted for PO intake and PO Rx so that she could get to her family sooner as opposed to staying in PACU for monitoring after IV med. States that she feels a little light-headed but desired to have her head up a little. Stated that she feels a little chilled but declined warm blanket 0258 Applesauce and water given prior to Rx. C/o mild shakes, not visible. Medicated PO 0314 To BC - hand off to RN. Call light given, started to visibly shake at the end of the handoff. BC RN connecting SCDs and continuous pulse ox. BP stable. Report given including that she was given 325 mg tylenol with the oxy, toradol, and gentle fundal massage per Dr. Castillo. Pt stable and pleasant.
[2020-05-21] MEDS: ONDANSETRON 4 MG/2 ML INJ IV (04:21)
[2020-05-21] MEDS: METOCLOPRAMIDE 10 MG/2 ML INJ IV (05:48)
[2020-05-21] MEDS: DEXTROSE 5%-LACTATED RINGERS 1,000 ML 150 ML IV ×3 (05:50→19:34)
[2020-05-21] MEDS: KETOROLAC 30 MG/ML VIAL IV ×3 (08:36→21:32)
--- NOTE | 2020-05-21 13:04 | P.PNOB_ITS ---
Subjective - OB Subjective Patient comments: pain well controlled Lewis baby status: NICU ([facility]) Date Patient Seen: 05/21/20 Time Patient Seen: 13:04 Interval history: Patient is a 35 year old now para 2 status post repeat section in the setting of labor at 35 weeks, ruptured membrane s, and bicornuate uterus. Patient has had significant nausea this a.m., recently woke up after overnight . Is improved and tolerating crackers and water. Good pain control, [place] still in place, SCDs still in place, no other complaints. Exam Vital Signs (past 8 hours): 125/76, hr 94 Oxygen Delivery Method Room Air Const General: cooperative, healthy appearing, comfortable and acute distress Resp Effort & Inspection: normal respiratory effort Auscultation: clear to auscultation bilaterally Cardio Rate: regular rate Rhythm: regular rhythm GI Palpation: soft and No tender Objective Labs Result Diagrams: 05/21/20 00:30 Labs: Laboratory Results - last 24 hr 05/21/20 05/21/20 05/21/20 00:30 00:30 00:30 WBC 11.8 H RBC 3.41 L Hgb 10.7 L Hct 29.9 L MCV 87.8 MCH 31.3 MCHC 35.6 RDW 13.5 Plt Count 161 Neut % (Auto) Not Reportable Lymph % (Auto) Not Reportable [place] % (Auto) Not Reportable Eos % (Auto) Not Reportable Baso % (Auto) Not Reportable Lymph # (Auto) Not Reportable [place] # (Auto) Not Reportable Baso # (Auto) Not Reportable Total Counted 100 Seg Neutrophils % 62.0 Band Neutrophils % 7.0 Lymphocytes % (Manual) 24.0 L Monocytes % (Manual) 4.0 Eosinophils % (Manual) 2.0 Metamyelocytes % 1.0 H Neutrophils # (Manual) 8142 H RBC Morphology Normal morphology SARS-CoV-2 (PCR) Negative Group B Strep (PCR) Blood Type O Positive Antibody Screen Negative 05/21/20 01:00 WBC RBC Hgb Hct MCV MCH MCHC RDW Plt Count Neut % (Auto) Lymph % (Auto) [place] % (Auto) Eos % (Auto) Baso % (Auto) Lymph # (Auto) [place] # (Auto) Baso # (Auto) Total Counted Seg Neutrophils % Band Neutrophils % Lymphocytes % (Manual) Monocytes % (Manual) Eosinophils % (Manual) Metamyelocytes % Neutrophils # (Manual) RBC Morphology SARS-CoV-2 (PCR) Group B Strep (PCR) Neg for grp b strep Blood Type Antibody Screen Assessment & Plan Plan day: 0 plan OB: routine postop care Comments: This patient is technically day 0 after an overnight repeat and bilateral salpingectomy in the setting of labor, prior C- section, bicornuate uterus. The patient has had some nausea issues but is now recovering, but is not meeting goals for discharge at this time. Discussed reassessing this evening, anticipate discharge tomorrow morning. These goals were discussed with the patient, who vocalized understanding. Time Spent With Patient Time: Total time spent is greater than 50% in coordination of care (as documented) at patient's floor/unit and/or counseling patient: Time with patient: 15-24 minutes
[2020-05-21] MEDS: LANOLIN OINT 7 GM 1 APPLIC TOP (17:34)
[2020-05-21] MEDS: ACETAMINOPHEN 325 MG TABLET 650 MG PO (21:33)
[2020-05-22] MEDS: ACETAMINOPHEN 325 MG TABLET 650 MG PO (04:39)
[2020-05-22] MEDS: IBUPROFEN 600 MG TABLET PO (04:41)
[2020-05-22] MEDS: OXYCODONE IR 5 MG TABLET PO ×2 (04:42→09:54)
[2020-05-22 06:25] LABS: Hematocrit 24.4 % (36-46); Hemoglobin 8.5 g/dL (12.0-16.0)
--- NOTE | 2020-05-22 08:00 | P.DS_ITS ---
Discharge Providers Provider Date of admission: 05/21/20 00:12 Discharge Date: 05/22/20 Primary care physician: Candace Rodriguez DO Consults: 05/21/20 03:44 Consult to Legal Records Clerk Routine Comment: Discharge provider: Neda Castillo MD Summary Hospital Course Date Patient Seen: 05/22/20 Time Patient Seen: 08:01 Diagnoses: 36 weeks gestation Spontaneous rupture of membranes Previous section Desires permanent sterilization Repeat low-transverse section Bilateral salpingectomy Bicornuate uterus Hospital Course: Patient is a 35-year-old 3 para 0212 who presented on Thursday May 21, 2020 with spontaneous rupture of membranes at 36 weeks gestation. She had a prior section. She desired permanent sterilization. She underwent a repeat low-transverse section and a bilateral salpingectomy without complication. The baby was transferred to a tertiary care center. Patient's postoperative course was complicated by nausea which was thought to be related to the Duramorph. This morning she is tolerating a diet. No nausea or vomiting. Pain is well controlled. She has voided without catheter. She is discharged home Peripartum Data Delivery Method: Section Laceration Description: None Episiotomy description: None Procedures: Repeat low-transverse section Bilateral salpingectomy Spinal anesthesia complications: none 1: Gender: Male Disposition of : NICU Status at Discharge Cognitive/behavioral status at discharge: oriented Functional status at discharge: independent ambulation Overall status at discharge: patient is progressing back to baseline Time Spent with Patient Time attestation: Total time spent providing and/or coordinating discharge services: Time spent: Less than 30 minutes Objective Labs Result Diagrams: 05/22/20 06:15 Labs: Laboratory Results - last 24 hr 05/22/20 06:15 Hgb 8.5 L Hct 24.4 L Exam Vital Signs (past 8 hours): Oxygen Delivery Method Room Air Discharge Plan Discharge Plan Patient Disposition: Home Provider Discharge Comment: Call with fever, chills, redness or drainage around the incision, or bleeding vaginally more than a pad in an hour Tylenol 650 mg every 6 hours Ibuprofen 600 mg every 6 hours Stool softener once or twice a day until bowel is back to normal Push fluids Discharge orders & Medications Prescriptions: New oxycodone 5 mg tablet 5 mg PO Q4H PRN (Reason: pain) Qty: 20 RF: 0 Continued cholecalciferol (vitamin D3) 1,000 unit capsule 1,000 unit PO DAILY RF: 0 omega-3 fatty acids [Fish Oil Concentrate] 1,000 mg capsule 1,000 mg PO DAILY RF: 0 ferrous sulfate 325 mg (65 mg iron) tablet 325 mg PO DAILY RF: 0 prenat.vits,valeria,[id number] Tablet 1 tab PO DAILY RF: 0 Discontinued pantoprazole [Protonix] 20 mg tablet,delayed release (DR/EC) 20 mg PO DAILY Qty: 30 RF: 0 zolpidem [Ambien] 5 mg tablet 5 mg PO BEDTIME PRN (Reason: insomnia) Qty: 20 RF: 0 No Action (DME) Message THerapy Qty: 1 RF: 0 Follow up/Referrals: Neda Castillo MD [Physician] - 1 Week (Aquacel dressing removal) Diet/Activity/Treatments Diet: Regular Activity: No heavy lifting Skin/Wound/Dressing Care Report to your healthcare provider any signs of infection, such as:: chills, fever, increased pain, unusual drainage and unusual redness Dressing: Do not remove Visit Report/Discharge Packet Instructions: DI for , DI for Prescription Opioid Use Discharge Data Primary Care Provider: Candace Rodriguez
[2020-05-22 08:02] VITALS: BP 120/80; PULSE 86; RESP 18; TEMP 37
[2020-05-22] MEDS: LANOLIN OINT 7 GM 1 APPLIC TOP (09:53)
[2020-05-22] MEDS: DOCUSATE 250 MG CAPSULE PO (09:54)
[2020-05-22] MEDS: PRENATAL VIT,CALC/IRON/FOLIC 1 TABLET 1 TAB PO (09:58)
== END 2020-05-22 10:15 | disposition home or self-care (01) | DRG 785 ==
PROVIDERS: Admitting Provider Obstetrics & Gynecology; PCP Family Medicine; Referring Provider Family Medicine; Visit Provider Obstetrics & Gynecology
PROC: 10D00Z1 Extraction of Products of Conception, Low, Open Approach (ICD-10-PCS; CPT 59514; principal; 2020-05-21 01:00)
DX: O34.03 Maternal care for unspecified congenital malformation of uterus, third trimester (principal); Z30.2 Encounter for sterilization; O42.913 Preterm premature rupture of membranes, unspecified as to length of time between rupture and onset of labor, third trimester; O69.81X0 Labor and delivery complicated by cord around neck, without compression, not applicable or unspecified; Q51.3 Bicornate uterus; Z3A.36 36 weeks gestation of pregnancy; Z37.0 Single live birth; Z20.822 Contact with and (suspected) exposure to COVID-19
CPT/HCPCS: 36415; 58700; 59025; 59050; 59510; 59514; 84112; 85007; 85014; 85018; 85025; 86850; 86900; 86901; 87081; 87635; 87653; C9803; G0379; J0690; J1885; J2274; J2405; J2590; J2765; J3010; J7121

== ENCOUNTER → 2020-09-05 11:52 | Outpatient (CLI) | payer OTHER, SELFPAY ==
[2020-09-05 12:39] LABS: COVID19 -Nasal RAPID Negative (Negative)
== END ==
PROVIDERS: PCP Family Medicine; Visit Provider Student in an Organized Health Care Education/Training Program
DX: Z20.822 Contact with and (suspected) exposure to COVID-19 (principal); J02.9 Acute pharyngitis, unspecified
CPT/HCPCS: 87070; 87635

== ENCOUNTER → 2021-08-22 13:50 | Outpatient (CLI) | payer OTHER, SELFPAY | PROVIDERS: PCP Family Medicine; Referring Provider Family Medicine; Visit Provider Family Medicine | DX: R00.2 Palpitations (principal); G43.909 Migraine, unspecified, not intractable, without status migrainosus | CPT/HCPCS: 93242 ==

== ENCOUNTER → 2022-12-05 09:48 | Outpatient (CLI) | payer OTHER, SELFPAY ==
[2022-12-05 11:21] LABS: Add Manual Diff / Slide Review NO; Basophils Absolute Auto 0 /uL (0-100); Basophils Percent Auto 0.8 % (0-2); Eosinophils Absolute Auto 100 /uL (0-450); Eosinophils Percent Auto 2.1 % (2-4); Hematocrit 39.1 % (36-46); Hemoglobin 13.6 g/dL (12.0-16.0); Lymphocytes Absolute Auto 2300 /uL (1100-4500); Lymphocytes Percent Auto 37.3 % (25-40); Mean Corpuscular HGB Conc 34.7 % (30-36); Mean Corpuscular Hemoglobin 30.8 PG (26-34); Mean Corpuscular Volume 88.8 fL (80-100); Monocytes Absolute Auto 400 /uL (0-900); Monocytes Percent Auto 6.1 % (3-14); Neutrophils Absolute Auto 3300 /uL (1500-7000); Neutrophils Percent Auto 53.7 % (50-75); Platelet Count 131 X10^3/uL (150-400); Red Blood Cell Count 4.41 X10^6/uL (4.0-5.2); Red Cell Distribution Width 12.9 % (11.6-14.8); White Blood Cell Count 6.2 X10^3/uL (4.5-11.0)
[2022-12-05 11:28] LABS: HEMOLYSIS 24 (0-50); Iron 279 ug/dL (37-170)
[2022-12-05 11:30] LABS: Alanine Aminotransferase 19 IU/L (<35); Albumin 4.5 g/dL (3.5-5.0); Albumin Globulin Ratio 1.4 (1.0-2.8); Alkaline Phosphatase 35 U/L (38-126); Aspartate Aminotransferase 30 IU/L (14-36); BUN Creatinine Ratio 20.8 (6-22); Bilirubin Total 1.3 mg/dL (0.2-1.3); Blood Urea Nitrogen 11 mg/dL (7-17); Carbon Dioxide 22 mmol/L (22-32); Chloride 105 mmol/L (98-107); Estimated Glomerular Filt Rate > 60 mL/min (>60); Globulin 3.2 g/dL (1.7-4.1); Glucose 80 mg/dL (70-100); HEMOLYSIS 25 (0-50); Potassium 4.5 mmol/L (3.4-5.1); Sodium 135 mmol/L (137-145); Total Protein 7.7 g/dL (6.3-8.2)
[2022-12-05 11:40] LABS: Total Iron Binding Capacity 363 ug/dL (265-497); Transferrin 272 mg/dL (206-381)
[2022-12-05 11:50] LABS: Percent Iron Saturation 77 % (15-50)
== END ==
PROVIDERS: PCP Family Medicine; Referring Provider Family Medicine; Visit Provider Family Medicine
DX: D50.9 Iron deficiency anemia, unspecified (principal)
CPT/HCPCS: 36415; 80053; 83540; 83550; 85025